=== PATIENT | male | born 1950 | race Caucasian/White ===

== ENCOUNTER 2020-10-25 06:17 | Day surgery (SDC) | payer MEDICARE, MEDICAID ==
[2020-10-25] VITALS (8 sets, daily range): BP systolic 122–165; BP diastolic 77–104
[~2020-10-25] VITALS: Ht 165.1 cm; Wt 81.1 kg
[2020-10-25] MEDS ORDERED: normal saline 1000ml 1,000 ML IV SCH (07:45)
[2020-10-25] MEDS ORDERED: FLO0.4C PO (07:53)
[2020-10-25] MEDS ORDERED: LOSA100T57 PO (07:53)
[2020-10-25] MEDS ORDERED: FENO145T25 PO (07:53)
[2020-10-25] MEDS ORDERED: SERT-433 PO (07:53)
[2020-10-25] MEDS ORDERED: OMEP40CA21 PO (07:53)
[2020-10-25] MEDS ORDERED: IBUP-2697 PO (07:53)
[2020-10-25] MEDS ORDERED: AMLO2.5T5 PO (07:53)
[2020-10-25] MEDS ORDERED: heparin sodium, porcine/PF 100unit/ml 5ML syringe ONE (08:15)
[2020-10-25] MEDS ORDERED: fentaNYL/PF 50MCG/1 ML 2ML syringe ONE ×3 (08:15→09:59)
[2020-10-25] MEDS ORDERED: LIDOcaine 1%/PF 5ML 10 MG/ML VIAL ONE (08:15)
[2020-10-25] MEDS ORDERED: midazolam 1 mg/ML 2ml injection ONE ×2 (08:15→09:06)
[2020-10-25 08:30] LABS: BASOPHILS # (AUTO) 0.1 X10'3 (0-0.2); BASOPHILS % (AUTO) 0.6 % (0-1); EOSINOPHILS # (AUTO) 0.4 X10'3 (0-0.9); EOSINOPHILS % (AUTO) 4.1 % (0-6); HEMATOCRIT 37.3 % (42.0-52.0); HEMOGLOBIN 12.6 g/dl (14.0-17.9); LYMPHOCYTES # (AUTO) 1.7 X10'3 (1.1-4.8); LYMPHOCYTES % (AUTO) 18.8 % (21-51); MEAN CORPUSCULAR HEMOGLOBIN 32.4 PG (27.0-31.0); MEAN CORPUSCULAR HGB CONC 33.8 g/dL (33.0-36.5); MEAN CORPUSCULAR VOLUME 95.8 FL (78-98); MEAN PLATELET VOLUME 8.6 FL (7.4-10.4); MONOCYTES # (AUTO) 0.8 X10'3 (0-0.9); MONOCYTES % (AUTO) 8.6 % (2-12); NEUTROPHILS # (AUTO) 6.1 X10'3 (1.8-7.7); NEUTROPHILS % (AUTO) 67.9 % (42-75); PLATELET COUNT 239 X10'3 (140-440); RED BLOOD COUNT 3.89 X10'6 (4.70-6.10)
[2020-10-25] MEDS ORDERED: ceFAZolin/D5W- 1GM premix 50 ML IV SCH (09:05)
[2020-10-25] MEDS ORDERED: ceFAZolin/D5W- 1GM premix 50 ML IV ONE (09:10)
== END 2020-10-25 12:25 | disposition home or self-care (01) ==
LOC: SSTAY O 06:17
PROVIDERS: ATTEND Radiology Vascular & Interventional Radiology
DX: C13.8 Malignant neoplasm of overlapping sites of hypopharynx (principal); M89.8X8 Other specified disorders of bone, other site; I12.9 Hypertensive chronic kidney disease with stage 1 through stage 4 chronic kidney disease, or unspecified chronic kidney disease; N18.9 Chronic kidney disease, unspecified; J44.9 Chronic obstructive pulmonary disease, unspecified; Z79.899 Other long term (current) drug therapy; Z98.890 Other specified postprocedural states
CPT/HCPCS: 20225; 36415; 36561; 76937; 77001; 77002; 85025; 99152; 99153; C1788; C1894; J1642; J2250; J3010; J7030